=== PATIENT | female | born 1960 | race Caucasian/White ===

== ENCOUNTER 2021-06-14 12:30 | Outpatient (REF) | payer MEDICARE, MEDICAID, SELFPAY | END 2021-06-14 12:31 | disposition home or self-care (01) | LOC: HO.MRI 12:30 | PROVIDERS: PCP Internal Medicine; Visit Provider Nurse Practitioner Gerontology | DX: Z13.89 Encounter for screening for other disorder (principal) ==

== ENCOUNTER 2021-07-19 12:12 | Emergency (ER) | payer MEDICARE, MEDICAID, SELFPAY ==
--- NOTE | ~2021-07-19 | XR_ITS ---
EXAMINATION: XR CALCANEUS, LEFT CLINICAL INFORMATION: Left heel pain. Chronic abdominal wound. COMPARISON: None TECHNIQUE: Lateral and axial views of the left calcaneus were obtained. FINDINGS: There is diffuse osteopenia.. The subtalar joint appears unremarkable. The ankle mortise is not well visualized. There is a small calcaneal heel and retrocalcaneal enthesophytes. No fracture seen. The soft tissues are normal. XR/XR calcaneus LT min 2V IMPRESSION: Small calcaneal heel and retrocalcaneal enthesophytes. No visible acute fracture, dislocation or subluxation seen.
--- NOTE | 2021-07-19 12:27 | ED.FEMALEGU ---
HPI - Female Genitourinary General Chief complaint: Urogenital-Female Stated complaint: ? UTI PER SNF Time Seen by Provider: 07/19/21 12:23 Source: patient and EMS Mode of arrival: EMS Limitations: no limitations History of Present Illness HPI Narrative: 61 y/o female with history of bipolar disorder, PTSD, CVA, GERD, GIB 2020, HLD, HTN, DM2 on insulin, nonhealing left heel ulcer, chronic interstitial cystitis, urinary incontinence, hx bladder sling who presents to the ER from [facility] with reports of a UTI. She states she has had burning with urination for the last 12 days. She says 4 employees at the [facility] attempted to straight cath her for a sample but were unsuccessful so she called 911 to come to the hospital. EMS reports she called 911 last week for the same exact complaint. She denies N/V/D, abdominal pain, back pain, fever, chills. She denies vaginal discharge or itching. MD elicited complaint: UTI Pertinent past history: recurrent UTIs and urinary incontinence Onset (ago): day(s) (12) Location of symptoms: external genitalia Severity: moderate Female Urogenital Radiation: Non-Radiating Severity scale (1-10): 5 Quality of pain: burning Consistency: intermittent Vaginal discharge: none Vaginal bleeding: none Urinary symptoms: Dysuria and Difficulty Urinating Exacerbating factors: urination Relieving factors: none Associated symptoms: denies other symptoms Treatment prior to arrival: none Sexual activity: No Patient : No Related Data Previous Rx's Medication Instructions Recorded cefuroxime axetil 250 mg tablet 250 mg PO BID 7 Days #14 tab 07/19/21 Allergies Allergy/AdvReac Type Severity Reaction Status Date / Time Unable to Assess Allergy Unverified 07/19/21 12:23 Review of Systems Review of Systems: Constitutional: No Fever, No Chills ENT/Mouth: No sore throat, No Rhinorrhea, No Swallowing Difficulty Eyes: No Eye Pain, No Swelling, No Redness Cardiovascular: No Chest Pain, No SOB, No Orthopnea, No Edema Respiratory: No Cough, No Sputum, No Wheezing, No dyspnea Gastrointestinal: No Nausea, No Vomiting, No Diarrhea, No abdominal Pain, No Hematochezia, No Melena Genitourinary: + Dysuria, + Urinary Frequency, No Hematuria, +Urinary incontinence Musculoskeletal: No joint pain, No Myalgias Skin: No Skin Lesions, No rash Neuro: No Weakness, No Numbness, No Dizziness, No Headache Psych: +Anxiety/Panic, No Depression Heme/Lymph: No Bruising, No Lymphadenopathy Endocrine: No Polyuria, No Polydipsia PMFSH Social History Social History Advance Directives: Yes Advance Directives Information Provided: No Advance Directives on File: No Patient : No Physical Exam Vital Signs: Vital Signs: Last Vital Signs Temp 98.1 F 07/19/21 15:12 Pulse 55 07/19/21 15:12 Resp 16 07/19/21 15:12 BP 140/73 H 07/19/21 15:12 Pulse Ox 96 07/19/21 15:12 BMI result Body Mass Index 31.1 Appearance: Alert. Oriented X3. No acute distress. Eyes: Pupils equal, round and reactive to light. ENT: Pharynx normal. Neck: Normal inspection. Neck supple. CVS: Normal heart rate and rhythm. Pulses normal. Respiratory: No respiratory distress. Breath sounds normal. Abdomen: Obese, soft and nontender. +BS x4 Genitalia: normal external inspection Skin: Skin warm and dry. Normal skin color. Normal skin turgor. No rashes. Extremities: No lower extremity edema. Left heel with a small ulceration, dry, without erythema, drainage or redness. tender to touch. Neuro: Oriented X 3. No motor deficit. No sensory deficit. Intermittent mild confusion which is baseline Course Course Course Narrative: 61 y/o female with bipolar disorder, PTSD, hx suicide attempt, hx chronic intersitial cystitis w/ bladder sling, DM with nonhealing foot ulcer who has been nonambulatory for the last 3-4 months due to the ulcer presents to ED from SNF with c/o dysuria x12 days. No systemic signs of infection. Afebrile on arrival, hemodynamically stable. Will get straight cath UA, basic labs, XR of calcaneous due to worsening pain. Reevaluation(s) Reevaluation #1: Urinalysis is positive for infection. She has no leukocytosis. Her CRP is normal with in unremarkable calcaneus x-ray. No evidence of osteomyelitis. She was given 1 dose of IV Rocephin here for treatment of UTI. this time she is stable for discharge back to the facility with oral antibiotics. MDM - Female Genitourinary Lab Data Result diagrams: 07/19/21 14:44 07/19/21 14:44 Labs: Lab Results 07/19/21 07/19/21 07/19/21 Range/Units 13:44 14:44 14:44 WBC Cancelled RBC Cancelled Hgb Cancelled Hct Cancelled MCV Cancelled MCH Cancelled MCHC Cancelled RDW Cancelled Plt Count Cancelled MPV Cancelled Immature Gran % (Auto) Cancelled Neut % (Auto) Cancelled Lymph % (Auto) Cancelled [place] % (Auto) Cancelled Eos % (Auto) Cancelled Baso % (Auto) Cancelled Lymph # (Auto) Cancelled [place] # (Auto) Cancelled Eos # (Auto) Cancelled Baso # (Auto) Cancelled Abs Immat Gran (auto) Cancelled Absolute Neuts (auto) Cancelled Absolute Nucleated RBC Cancelled Nucleated RBC % (auto) Cancelled Sodium 143 (135-145) mmol/L Potassium 4.7 (3.3-5.1) mmol/L Chloride 104 (96-108) mmol/L Carbon Dioxide 32 H (22-29) mmol/L Anion Gap 12 (12-20) BUN 19 H (9-16) mg/dL Creatinine 0.87 (0.5-1.4) mg/dL Estim Creat Clear Calc 81.4 Estimated GFR > 60 Random Glucose 108 (60-115) mg/dL Lactic Acid (0.5-2.0) mmol/L Calcium 9.8 (8.4-10.2) mg/dL Magnesium 2.2 (1.6-2.6) mg/dL C-Reactive Protein 0.02 (< or = 0.50) mg/dL Urine Color YELLOW Urine Appearance CLOUDY Urine pH 7.0 (5.0-8.0) Ur Specific [place] 1.025 (1.005-1.025) Urine Protein 1+ H (NEG-TRACE) MG/DL Urine Glucose (UA) NEG (NEG) MG/DL Urine Ketones NEG (NEG) MG/DL Urine Blood 3+ H (NEG) Urine Nitrite NEG (NEG) Ur Leukocyte Esterase 2+ H (NEG) Urine RBC 30-49 H (0) /HPF Urine WBC 50-75 H (0-4) /HPF Ur Squamous Epith Cells TRACE /LPF Urine Bacteria 1+ /LPF COVID-19 (PRASANTH) (Negative) COVID-19 Clin Com 07/19/21 07/19/21 Range/Units 14:44 14:45 WBC RBC Hgb Hct MCV MCH MCHC RDW Plt Count MPV Immature Gran % (Auto) Neut % (Auto) Lymph % (Auto) [place] % (Auto) Eos % (Auto) Baso % (Auto) Lymph # (Auto) [place] # (Auto) Eos # (Auto) Baso # (Auto) Abs Immat Gran (auto) Absolute Neuts (auto) Absolute Nucleated RBC Nucleated RBC % (auto) Sodium (135-145) mmol/L Potassium (3.3-5.1) mmol/L Chloride (96-108) mmol/L Carbon Dioxide (22-29) mmol/L Anion Gap (12-20) BUN (9-16) mg/dL Creatinine (0.5-1.4) mg/dL Estim Creat Clear Calc Estimated GFR Random Glucose (60-115) mg/dL Lactic Acid 1.3 (0.5-2.0) mmol/L Calcium (8.4-10.2) mg/dL Magnesium (1.6-2.6) mg/dL C-Reactive Protein (< or = 0.50) mg/dL Urine Color Urine Appearance Urine pH (5.0-8.0) Ur Specific [place] (1.005-1.025) Urine Protein (NEG-TRACE) MG/DL Urine Glucose (UA) (NEG) MG/DL Urine Ketones (NEG) MG/DL Urine Blood (NEG) Urine Nitrite (NEG) Ur Leukocyte Esterase (NEG) Urine RBC (0) /HPF Urine WBC (0-4) /HPF Ur Squamous Epith Cells /LPF Urine Bacteria /LPF COVID-19 (PRASANTH) Negative (Negative) COVID-19 Clin Com See Note Critical Care Time Critical Care Time Critical Care Time: No Discharge Plan Discharge Clinical Impression: Urinary tract infection Patient Disposition: Home, Self-Care Instructions: Urinary Tract Infection in Women (DC) Additional Instructions: Your urine test showed infection. Take the prescribed antibiotic as directed. Follow up with your doctor and your Uro/ENROLLMENT SERVICES VICE PRESIDENT as needed. If you develop new or worsening symptoms call 911 or come back to the ER for further evaluation. Prescriptions: New cefuroxime axetil 250 mg tablet 250 mg PO BID 7 Days Qty: 14 0RF
[2021-07-19 12:42] VITALS: BP 166/73; PULSE 58; O2SAT 95
[2021-07-19 12:50] VITALS: BP 135/87; PULSE 55; RESP 16; TEMP 36.6; O2SAT 96; BMI 31.1
[2021-07-19 13:53] LABS: Appearance Urine CLOUDY; Color Urine YELLOW; Glucose Urine UA NEG (NEG); Leukocyte Esterase Urine 2+ (NEG); Nitrite Urine NEG (NEG); Specific Gravity - Urine 1.025 (1.005-1.025); UACC Culture Trigger YES; Urine Blood 3+ (NEG); Urine Ketones NEG (NEG); Urine Protein 1+ MG/DL (NEG-TRACE)
[2021-07-19 14:05] LABS: Bacteria Urine 1+ /LPF; RBC Urine 30-49 /HPF (0); Squamous Epithelial Cell Urine TRACE /LPF; WBC Urine 50-75 /HPF (0-4)
[2021-07-19] MEDS: cefTRIAXone sodium 1 GM in 0.9 % Sodium Chloride 50 ML IV (15:01)
[2021-07-19 15:03] LABS: Lactic Acid 1.3 mmol/L (0.5-2.0)
[2021-07-19 15:12] VITALS: BP 140/73; PULSE 55; RESP 16; TEMP 36.7; O2SAT 96
[2021-07-19 15:12] LABS: Anion Gap 12 (12-20); Blood Urea Nitrogen 19 mg/dL (9-16); C Reactive Protein 0.02 mg/dL (< or = 0.50); Calcium 9.8 mg/dL (8.4-10.2); Carbon Dioxide 32 mmol/L (22-29); Chloride 104 mmol/L (96-108); Creatinine Clr Calc Pharmacy 81.4; Estimated Glomerular Filt Rate > 60; Glucose Random 108 mg/dL (60-115); Magnesium 2.2 mg/dL (1.6-2.6); Potassium 4.7 mmol/L (3.3-5.1); Sodium 143 mmol/L (135-145)
[2021-07-19 15:17] LABS: COVID-19 Test Negative (Negative); IDNOW Serial# 55D5AD1C
[2021-07-19 15:30] LABS: Hemoglobin 13.1 g/dl (12.0-16.0); Imm Gran Abs Auto 0.01 X10*3/uL (0.00-0.03); Imm Gran Pct Auto 0.2 % (0.0-0.4); Mean Corpuscular Hemoglobin 30.3 pg (27.0-33.0); Mean Corpuscular Volume 97.7 fL (80.0-98.0); PLT CLUMP 1; SCAN SMEAR FLAG 1
[2021-07-19 15:31] LABS: Basophils Percent Auto 0.9 % (0-2); Eosinophils Absolute Auto 0.2 X10*3/uL (0.0-0.4); Eosinophils Percent Auto 5.3 % (0-4); Hematocrit 42.3 % (37.0-47.0); Lymphocytes Absolute Auto 1.3 X10*3/uL (1.2-4.9); Lymphocytes Percent Auto 28.7 % (20-40); Mean Platelet Volume 10.1 fL (9.4-12.3); Monocytes Absolute Auto 0.3 X10*3/uL (0.1-1.2); Monocytes Percent Auto 7.1 % (2-11); Neutrophils Absolute Auto 2.5 x10*3/uL (2.0-8.3); Neutrophils Percent Auto 57.8 % (45-73); Red Blood Count 4.33 X10*6/uL (4.20-5.50); Red Cell Distribution Width 14.2 % (11.0-16.0)
[2021-07-19 15:52] LABS: MANUAL DIFF FLAG NO; Platelet Count 101 X10*3/uL (160-400); White Blood Count 4.4 X10*3/uL (4.8-10.8)
[2021-07-19 16:01] LABS: Erythrocyte Sedimentation Rate 16 MM/HR (0-20)
--- NOTE | 2021-07-19 16:38 | PC.NURSE ---
@ [facility] CALLED FOR BLS TRANSPORT BACK TO [facility] PT IS READY TO GO GIVEN AN ETA OF 1900 THEIR NEXT AVAILABLE
== END 2021-07-19 19:07 | disposition skilled nursing facility (03) ==
PROVIDERS: Physician Assistant; Emergency Provider Emergency Medicine; PCP Family Medicine
DX: N39.0 Urinary tract infection, site not specified (principal); R32 Unspecified urinary incontinence; R30.0 Dysuria; Z20.822 Contact with and (suspected) exposure to COVID-19; Z79.899 Other long term (current) drug therapy
CPT/HCPCS: 51702; 73650; 80048; 81001; 83605; 83735; 85025; 85652; 86140; 87086; 87635; 96365; 99284; J0696

== ENCOUNTER 2021-12-18 17:10 | Emergency (ER) | payer MEDICARE, MEDICAID, SELFPAY ==
--- NOTE | ~2021-12-18 | XR_ITS ---
EXAMINATION: XR CHEST CLINICAL INFORMATION: Mental status change COMPARISON: None TECHNIQUE: Frontal view of the chest was obtained. FINDINGS: Allowing for the fact that the lungs are markedly hypoinflated, no significant abnormality is noted involving the heart, lungs, mediastinum, bony thorax or soft tissues. XR/XR chest 1V IMPRESSION: No acute intrathoracic disease.
--- NOTE | ~2021-12-18 | CT_ITS ---
EXAMINATION: CT HEAD WITHOUT CONTRAST CLINICAL INFORMATION: Acute mental status change COMPARISON: None TECHNIQUE: Contiguous axial imaging was performed from the skull base to vertex without intravenous administration of contrast. This CT examination was performed using dose optimization techniques as appropriate, variously including the following: *Automated exposure control *Adjustment of mA and/or kV according to patient size (this includes techniques or standardized protocols for targeted exams where dose is matched to indication/reason for exam; i.e. extremities or head) *Use of iterative reconstruction technique DLP: 642 mGy-cm FINDINGS: There is no evidence of an extra-axial collection. There is no evidence of intra-axial or extra-axial hemorrhage. The ventricles and extra-axial CSF spaces are prominent suggestive of generalized atrophy. There is postsurgical change or encephalomalacia seen in the right frontal and parietal lobes. There is an old right basal ganglia lacunar infarct or [place]ian degeneration. There is ex vacuo dilatation of the frontal horn of the right lateral ventricle. Known mass, mass effect or acute infarct is seen. There are bilateral craniotomy defects. No skull fracture is seen. There are mild inflammatory changes in the chest with and sphenoid sinuses. The mastoid air cells and middle ears are clear. CT/CT head/brain wo IV con IMPRESSION: No acute findings. Generalized atrophy and nonspecific periventricular white matter disease. Right temporal and frontal encephalomalacia and postsurgical changes.
[2021-12-18 17:28] VITALS: BP 127/76; BP 99/55; PULSE 50; RESP 16; TEMP 36.4; O2SAT 92; BMI 27.1
[2021-12-18 17:34] LABS: Glucose, Whole Blood 134 mg/dL (60-115)
[2021-12-18 17:42] LABS: Glucose, Whole Blood 145 mg/dL (60-115)
--- NOTE | 2021-12-18 17:44 | ECG_ITS ---
Test Reason : ALTERED MENTAL Blood Pressure : / mmHG Vent. Rate : 046 BPM Atrial Rate : 046 BPM P-R Int : 156 ms QRS Dur : 084 ms QT Int : 564 ms P-R-T Axes : -81 -16 013 degrees QTc Int : 493 ms Unusual P axis, possible ectopic atrial bradycardia Inferior infarct , age undetermined Possible Anterior infarct , age undetermined Abnormal ECG No previous ECGs available Referred By: Mitesh Stanley Electronically Signed By:ROBBIN STARKEY
[2021-12-18 17:46] VITALS: BP 128/75; PULSE 49; O2SAT 94
--- NOTE | 2021-12-18 17:47 | ED.AMS ---
HPI - Altered Mental Status General Chief Complaint: Altered Mental Status Stated Complaint: low bs 44,unresp per snf, 247 now, alert per ems Time Seen by Provider: 12/18/21 17:36 Source: EMS, RN notes reviewed and old records reviewed Limitations: altered mental status History of Present Illness HPI narrative: Patient presents from care home after an apparent change in mental status. Per care home she is typically agitated but awake and conversant. Today she has been obtunded. Her point of care glucose at the care home was 44 so they called EMS. EMS gave IV glucose and 2 doses of glucagon which improved her blood sugar 2257 but did not improve her mental status. On arrival to the emergency department she is still obtunded. Related Data Previous Rx's Medication Instructions Recorded cefuroxime axetil 250 mg tablet 250 mg PO BID 7 days #14 tabs 07/19/21 cephalexin 500 mg capsule 1,000 mg PO BID #28 caps 12/18/21 Allergies Allergy/AdvReac Type Severity Reaction Status Date / Time fish derived [fish] Allergy Unknown Verified 12/18/21 17:43 fish oil Allergy Unknown Verified 12/18/21 17:43 Review of Systems Review of Systems: Unable to obtain [facility] Social History Social History Advance Directives: No Advance Directives Information Provided: No Physical Exam ED Vital Signs: Vital Signs - 24 hr 12/18/21 17:28 12/18/21 17:46 12/18/21 19:49 Temperature 97.5 F Pulse Rate 50 49 L 47 L Respiratory Rate 16 Blood Pressure 99/55 L 128/75 140/69 H Pulse Oximetry 92 94 93 Oxygen Delivery Method Room Air Room Air Room Air BMI result Body Mass Index 27.1 Const Other: Patient responded 1-2 words to noxious stimuli only. She can localize pain. Vital signs are otherwise stable and she has no evidence of respiratory distress HENMT Other: Pupils are equal and reactive to light, mid point about 4 mm Neck Other: No meningismus Resp Other: Clear and equal bilaterally without rales or rhonchi Cardio Other: Regular rate and rhythm without murmurs rubs or gallops GI Other: Abdomen is soft and nondistended. No grimacing or other evidence of tenderness Skin Other: Warm and mildly diaphoretic. No jaundice Neuro Other: Unable to cooperate. No obvious facial droop. Course Course Course Narrative: Mental status change Urinary tract infection Stroke Hypoglycemia Metabolic encephalopathy 20:10 Workup in the emergency department show far shows electrolytes with normal sodium and potassium. Creatinine is 0.75. Random glucose is 164. Calcium magnesium and LFTs are normal. Her ammonia, however, is 59 which is mildly elevated. Awaiting CBC and urinalysis. CT scan of brain is unremarkable for acute pathology. Her lactic acid is 2.5. She has already been treated with 1 L of normal saline. I will order a 2 L 20:54. Patient is now wide awake and back to her baseline. Urinalysis shows 2+ leukocytes consistent with urinary tract infection. Given these findings will start patient on cephalexin. Will also discharge back to shelter facility. MDM - Altered Mental Status Lab Data Result diagrams: 12/18/21 19:10 12/18/21 19:09 Labs: Lab Results 12/18/21 12/18/21 12/18/21 Range/Units 17:28 17:39 19:08 PT (10.0-13.1) SEC INR (0.9-1.1) Sodium (135-145) mmol/L Potassium (3.3-5.1) mmol/L Chloride (96-108) mmol/L Carbon Dioxide (22-29) mmol/L Anion Gap (12-20) BUN (9-16) mg/dL Creatinine (0.5-1.4) mg/dL Estim Creat Clear Calc Estimated GFR POC Glucose 134 H 145 H (60-115) mg/dL Random Glucose (60-115) mg/dL Lactic Acid 2.5 H* (0.5-2.0) mmol/L Calcium (8.4-10.2) mg/dL Total Bilirubin (0.0-1.0) mg/dL AST (5-31) U/L ALT (0-31) U/L Alkaline Phosphatase (39-117) U/L Ammonia (13-55) umol/L Troponin I High Sens (<3.5-17.0) ng/L Total Protein (6.5-8.0) g/dL Albumin (3.5-5.0) g/dL Urine Color Urine Appearance Urine pH (5.0-9.0) Ur Specific [place] (1.005-1.025) Urine Protein (Neg-Trace) mg/dL Urine Glucose (UA) (Negative) mg/dL Urine Ketones (Negative) mg/dL Urine Blood (Negative) Urine Nitrite (Negative) Ur Leukocyte Esterase (Negative) Urine Opiates Screen (Not Detect) Urine Fentanyl Screen (Not Detect) Ur Barbiturates Screen (Not Detect) Ur Phencyclidine Scrn (Not Detect) Ur Amphetamines Screen (Not Detect) U Benzodiazepines Scrn (Not Detect) [place]am[place] (0.60-1.20) mmol/L Urine Cocaine Screen (Not Detect) U Marijuana (THC) Screen (Not Detect) COVID-19 (PRASANTH) (Negative) COVID-19 Clin Com 12/18/21 12/18/21 12/18/21 Range/Units 19:08 19:09 19:09 PT (10.0-13.1) SEC INR (0.9-1.1) Sodium 142 (135-145) mmol/L Potassium 4.0 (3.3-5.1) mmol/L Chloride 110 H (96-108) mmol/L Carbon Dioxide 23 (22-29) mmol/L Anion Gap 13 (12-20) BUN 20 H (9-16) mg/dL Creatinine 0.75 (0.5-1.4) mg/dL Estim Creat Clear Calc 91.5 Estimated GFR > 60 POC Glucose (60-115) mg/dL Random Glucose 164 H (60-115) mg/dL Lactic Acid (0.5-2.0) mmol/L Calcium 8.8 D (8.4-10.2) mg/dL Total Bilirubin 0.6 (0.0-1.0) mg/dL AST 15 (5-31) U/L ALT 11 (0-31) U/L Alkaline Phosphatase 59 (39-117) U/L Ammonia 59 H (13-55) umol/L Troponin I High Sens (<3.5-17.0) ng/L Total Protein 5.7 L (6.5-8.0) g/dL Albumin 3.3 L (3.5-5.0) g/dL Urine Color Urine Appearance Urine pH (5.0-9.0) Ur Specific [place] (1.005-1.025) Urine Protein (Neg-Trace) mg/dL Urine Glucose (UA) (Negative) mg/dL Urine Ketones (Negative) mg/dL Urine Blood (Negative) Urine Nitrite (Negative) Ur Leukocyte Esterase (Negative) Urine Opiates Screen (Not Detect) Urine Fentanyl Screen (Not Detect) Ur Barbiturates Screen (Not Detect) Ur Phencyclidine Scrn (Not Detect) Ur Amphetamines Screen (Not Detect) U Benzodiazepines Scrn (Not Detect) [place] (0.60-1.20) mmol/L Urine Cocaine Screen (Not Detect) U Marijuana (THC) Screen (Not Detect) COVID-19 (PRASANTH) Negative (Negative) COVID-19 Clin Com See Note 12/18/21 12/18/21 12/18/21 Range/Units 19:09 19:10 19:10 PT 16.6 H (10.0-13.1) SEC INR 1.4 H (0.9-1.1) Sodium (135-145) mmol/L Potassium (3.3-5.1) mmol/L Chloride (96-108) mmol/L Carbon Dioxide (22-29) mmol/L Anion Gap (12-20) BUN (9-16) mg/dL Creatinine (0.5-1.4) mg/dL Estim Creat Clear Calc Estimated GFR POC Glucose (60-115) mg/dL Random Glucose (60-115) mg/dL Lactic Acid (0.5-2.0) mmol/L Calcium (8.4-10.2) mg/dL Total Bilirubin (0.0-1.0) mg/dL AST (5-31) U/L ALT (0-31) U/L Alkaline Phosphatase (39-117) U/L Ammonia (13-55) umol/L Troponin I High Sens 5.6 (<3.5-17.0) ng/L Total Protein (6.5-8.0) g/dL Albumin (3.5-5.0) g/dL Urine Color Urine Appearance Urine pH (5.0-9.0) Ur Specific [place] (1.005-1.025) Urine Protein (Neg-Trace) mg/dL Urine Glucose (UA) (Negative) mg/dL Urine Ketones (Negative) mg/dL Urine Blood (Negative) Urine Nitrite (Negative) Ur Leukocyte Esterase (Negative) Urine Opiates Screen (Not Detect) Urine Fentanyl Screen (Not Detect) Ur Barbiturates Screen (Not Detect) Ur Phencyclidine Scrn (Not Detect) Ur Amphetamines Screen (Not Detect) U Benzodiazepines Scrn (Not Detect) [place] 0.92 (0.60-1.20) mmol/L Urine Cocaine Screen (Not Detect) U Marijuana (THC) Screen (Not Detect) COVID-19 (PRASANTH) (Negative) COVID-19 Clin Com 12/18/21 12/18/21 Range/Units 20:22 20:22 PT (10.0-13.1) SEC INR (0.9-1.1) Sodium (135-145) mmol/L Potassium (3.3-5.1) mmol/L Chloride (96-108) mmol/L Carbon Dioxide (22-29) mmol/L Anion Gap (12-20) BUN (9-16) mg/dL Creatinine (0.5-1.4) mg/dL Estim Creat Clear Calc Estimated GFR POC Glucose (60-115) mg/dL Random Glucose (60-115) mg/dL Lactic Acid (0.5-2.0) mmol/L Calcium (8.4-10.2) mg/dL Total Bilirubin (0.0-1.0) mg/dL AST (5-31) U/L ALT (0-31) U/L Alkaline Phosphatase (39-117) U/L Ammonia (13-55) umol/L Troponin I High Sens (<3.5-17.0) ng/L Total Protein (6.5-8.0) g/dL Albumin (3.5-5.0) g/dL Urine Color Yellow Urine Appearance Clear Urine pH 6.0 (5.0-9.0) Ur Specific [place] 1.020 (1.005-1.025) Urine Protein 30 (1+) H (Neg-Trace) mg/dL Urine Glucose (UA) 500 H (Negative) mg/dL Urine Ketones Trace (Negative) mg/dL Urine Blood Small (1+) H (Negative) Urine Nitrite Negative (Negative) Ur Leukocyte Esterase Moderate (2+) H (Negative) Urine Opiates Screen POSITIVE H (Not Detect) Urine Fentanyl Screen Not Detected (Not Detect) Ur Barbiturates Screen Not Detected (Not Detect) Ur Phencyclidine Scrn Not Detected (Not Detect) Ur Amphetamines Screen Not Detected (Not Detect) U Benzodiazepines Scrn Not Detected (Not Detect) [place]am[place] (0.60-1.20) mmol/L Urine Cocaine Screen Not Detected (Not Detect) U Marijuana (THC) Screen Not Detected (Not Detect) COVID-19 (PRASANTH) (Negative) COVID-19 Clin Com Discharge Plan Discharge Clinical Impression: Altered mental status, Hypoglycemia, Urinary tract infection Patient Disposition: [facility] Instructions: Urinary Tract Infection in Women (ED), Hypoglycemia in a Person with Diabetes (ED) Prescriptions: New cephalexin 500 mg capsule 1,000 mg PO BID Qty: 28 0RF No [facility] cefuroxime axetil 250 mg tablet 250 mg PO BID 7 Days Qty: 14 0RF
[2021-12-18] MEDS: 0.9 % Sodium Chloride 1,000 ML 999 ML IV ×2 (18:37→20:40)
--- NOTE | 2021-12-18 19:16 | PC.NURSE ---
PT DIFFICULT STICK. BLOODWORK FINALLY OBTAINED. SKIN COOL AND CLAMMY, PT REMAINS OBTUNDED AND NOT FOLLOWING COMMANDS. RESPONDS TO NOXIOUS STIMULI, THOUGH OCCASIONALLY ENGAGING WITH STAFF REQUESTING DONUT. POCT GLUCOSE REMAIN WNL SINCE ARRIVAL, THOUGH REMAINS ALTERED. PER FACILITY, PTS BASELINE IS ALERT, ORIENTED TO PERSON, COMBATIVE AND UNCOOPERATIVE AT TIMES. POCT WAS TAKEN TODAY A ROUTINE TASK, THOUGH PT HAD NOT EATEN SNACKS TODAY SHE TYPICALLY DOES. NO OTHER REPORTS OF ABNORMAL PT BEHAVIOUR.
[2021-12-18 19:31] LABS: INTERNATIONAL NORM RATIO 1.4 (0.9-1.1); Prothrombin Time 16.6 SEC (10.0-13.1)
[2021-12-18 19:42] LABS: Lithium 0.92 mmol/L (0.60-1.20)
[2021-12-18 19:44] LABS: COVID-19 Test Negative (Negative); IDNOW Serial# 16C4AD1C
[2021-12-18 19:49] VITALS: BP 140/69; PULSE 47; O2SAT 93
[2021-12-18 19:49] LABS: Alanine Aminotransferase 11 U/L (0-31); Albumin Level 3.3 g/dL (3.5-5.0); Alkaline Phosphatase 59 U/L (39-117); Anion Gap 13 (12-20); Aspartate Amino Transferase 15 U/L (5-31); Bilirubin Total 0.6 mg/dL (0.0-1.0); Blood Urea Nitrogen 20 mg/dL (9-16); Calcium 8.8 mg/dL (8.4-10.2); Carbon Dioxide 23 mmol/L (22-29); Chloride 110 mmol/L (96-108); Creatinine Clr Calc Pharmacy 91.5; Estimated Glomerular Filt Rate > 60; Glucose Random 164 mg/dL (60-115); Sodium 142 mmol/L (135-145); Total Protein 5.7 g/dL (6.5-8.0)
[2021-12-18 19:54] LABS: Ammonia 59 umol/L (13-55)
[2021-12-18 19:55] LABS: Troponin-I High Sensitivity 5.6 ng/L (<3.5-17.0)
[2021-12-18 20:09] LABS: Lactic Acid 2.5 mmol/L (0.5-2.0)
--- NOTE | 2021-12-18 20:29 | PC.NURSE ---
PT STRAIGHT CATH'D TO OBTAIN URINE SPECIMEN. PT HAS BECOME INCREASINGLY MORE ALERT, AND ABRASIVE TOWARDS STAFF, YELLING FROM STRETCHER, DEMANDING PAIN RELIEF FOR HER PERIAREA FOLLOWING STRAIGHT CATH, STATING SHE IS CURRENTLY BEING TREATING FOR UTI. PHLEBOTOMY CONTACTED FOR REMAINING BLOODWORK DUE, PT HAS BEEN A TOUGH STICK. MD AWARE OF PTS IMPROVEMENT OF LEVEL OF CONSCIOUSNESS.
[2021-12-18 20:33] LABS: Appearance Urine Clear; Color Urine Yellow; Glucose Urine UA 500 mg/dL (Negative); Leukocyte Esterase Urine Moderate (2+) (Negative); Nitrite Urine Negative (Negative); Urine Blood Small (1+) (Negative); Urine Ketones Trace mg/dL (Negative); Urine Protein 30 (1+) mg/dL (Neg-Trace)
[2021-12-18 20:46] LABS: Amphetamine Screen Urine Not Detected (Not Detect); Barbiturates, Urine Not Detected (Not Detect); Benzodiazepines Screen Urine Not Detected (Not Detect); Cannabinoid Screen Urine Not Detected (Not Detect); Cocaine Screen Urine Not Detected (Not Detect); Fentanyl, urine Not Detected (Not Detect); Opiate Screen Urine POSITIVE (Not Detect); Phencyclidine Screen Urine Not Detected (Not Detect)
[2021-12-18 21:00] LABS: Bacteria Urine None Seen (None Seen); Squamous Epithelial Cell Urine 0-2 /HPF (0-2)
[2021-12-18 21:10] LABS: Basophils Absolute Auto 0.1 X10*3/uL (0.0-0.2); Basophils Percent Auto 0.5 % (0-2); Eosinophils Absolute Auto 0.3 X10*3/uL (0.0-0.4); Eosinophils Percent Auto 2.3 % (0-4); Hematocrit 43.9 % (37.0-47.0); Hemoglobin 13.8 g/dl (12.0-16.0); Imm Gran Abs Auto 0.09 X10*3/uL (0.00-0.03); Imm Gran Pct Auto 0.7 % (0.0-0.4); Lymphocytes Absolute Auto 1.6 X10*3/uL (1.2-4.9); Lymphocytes Percent Auto 13.5 % (20-40); Mean Corpuscular HGB Conc 31.4 g/dl (31.0-35.0); Mean Corpuscular Hemoglobin 30.8 pg (27.0-33.0); Mean Platelet Volume 10.6 fL (9.4-12.3); Monocytes Absolute Auto 0.7 X10*3/uL (0.1-1.2); Neutrophils Absolute Auto 9.3 x10*3/uL (2.0-8.3); Platelet Count 117 X10*3/uL (160-400); Red Blood Count 4.48 X10*6/uL (4.20-5.50); Red Cell Distribution Width 14.1 % (11.0-16.0); White Blood Count 12.1 X10*3/uL (4.8-10.8)
[2021-12-18 21:12] LABS: MANUAL DIFF FLAG NO
[2021-12-18 21:22] LABS: Reflex Lactate? Lactic Acid Added
[2021-12-18] MEDS: Acetaminophen 325 MG TABLET 650 MG PO (21:32)
[2021-12-18] MEDS: cephALEXin 500 MG CAPSULE 1000 MG PO (21:32)
== END 2021-12-18 22:51 | disposition skilled nursing facility (03) ==
PROVIDERS: Emergency Provider Emergency Medicine
DX: R41.82 Altered mental status, unspecified (principal); E16.2 Hypoglycemia, unspecified; N39.0 Urinary tract infection, site not specified; B95.7 Other staphylococcus as the cause of diseases classified elsewhere; Z20.822 Contact with and (suspected) exposure to COVID-19; Z79.899 Other long term (current) drug therapy
CPT/HCPCS: 70450; 71045; 80053; 80178; 80307; 81001; 82140; 82947; 83605; 84484; 85025; 85610; 87040; 87077; 87086; 87186; 87205; 87635; 93005; 96360; 96361; 99284; 99285